=== PATIENT | female | born 1970 | race Caucasian/White ===

== ENCOUNTER 2018-01-07 20:25 | Emergency (ER) | payer OTHER ==
[2018-01-07] MEDS ORDERED: NS 1,000 ML IV ONE (21:07)
--- NOTE | 2018-01-07 21:14 | EDPHY ---
H & P Stated Complaint: CONTINUED PELVIC PRESSURE WITH SCIATIC PAIN Time Seen by Provider: 01/07/18 20:54 HPI/ROS: CHIEF COMPLAINT: Suprapubic discomfort times 7-10 days HISTORY OF PRESENT ILLNESS: 47-year-old female with medical history significant for Sjogren syndrome, Ehler Danlos, fibromyalgia, chronic pain, chronic opiate dependence, seen at [facility] Emergency Department 1 week ago for evaluation of suprapubic discomfort. While there she had evaluation including pelvic examination and notes continued discomfort. No nausea or vomiting. No back or flank pain. No abnormal vaginal discharge or bleeding. No headache. PRIMARY CARE PROVIDER:Dr. Rosemary Mccarty REVIEW OF SYSTEMS: A ten point review of systems was performed and is negative with the exception of the items mentioned in the HPI PAST MEDICAL & SURGICAL HISTORY: Sjogren syndrome, Ehler Danlos, fibromyalgia, chronic pain, chronic opiate dependence SOCIAL HISTORY: Nonsmoker FAMILY HISTORY: No pertinent family history PHYSICAL EXAM (Prior to examination, patient consented to physical exam, hands were washed and my usual and customary physical exam procedures followed) 1) GENERAL: Well-developed, well-nourished, alert and oriented. Appears nontoxic. 2) HEAD: Normocephalic, atraumatic 3) HEENT: Pupils equal, round, reactive to light bilaterally. Sclera anicteric. Nasopharynx, oropharynx, clear, no lesions. Moist Mucous membranes. 4) NECK: Full range of motion, no meningeal signs. 5) LUNGS: Clear auscultation bilaterally, no wheezes, no rhonchi, no retractions. 6) HEART: Regular rate and rhythm, no murmur, no heave, no gallop. 7) ABDOMEN: No guarding, mild tenderness to palpation suprapubic region, negative McBurney's, negative Avelar's, negative Rovsing's, negative peritoneal sign, 8) MUSCULOSKELETAL: Moving all extremities, no focal areas of tenderness, no obvious trauma. No peripheral edema or discoloration. 9) BACK: No CVA tenderness, no midline vertebral tenderness, no fluctuance, no step-off, no obvious trauma, no visual or palpable abnormality. 10) SKIN: No rash, no petechiae. 11) Psychiatric: Patient is oriented X 3, there is no agitation. DIFFERENTIAL DIAGNOSIS: My differential diagnosis includes, but is not limited to, acute appendicitis, acute cholecystitis, bowel obstruction, acute pancreatitis, ovarian torsion, ectopic , gastritis and urinary tract infection. The patient understands that this diagnosis is provisional and can never be 100% accurate. This is a partial list of diagnoses considered. These considerations are based on history, physical exam, past history and reassessment. - Personal History LMP (Females 10-55): Extended Cycle BCP/Inj Current Tetanus/Diphtheria Vaccine: Yes - Medical/Surgical History Hx Asthma: No Hx Chronic Respiratory Disease: No Hx Diabetes: No Hx Cardiac Disease: No Hx Renal Disease: No Hx Cirrhosis: No Hx Alcoholism: No Hx HIV/AIDS: No Hx Splenectomy or Spleen Trauma: No Other PMH: ULNAR NERVE RELEASE, SCALING ECTOMY, LAPRSCOPIC EXPLORITORY, PT REPORTS SHE HAS CHRONIC PAIN DUE TO FIBRA MAYALGIA, SJOGREN''S SYNDROME - Social History Smoking Status: Never smoked Constitutional: Initial Vital Signs Temperature (C) 37.2 C 01/07/18 20:27 Heart Rate 92 01/07/18 20:27 Respiratory Rate 16 01/07/18 20:27 Blood Pressure 108/71 01/07/18 20:27 O2 Sat (%) 97 01/07/18 20:27 O2 Delivery Mode Room Air Allergies/Adverse Reactions: No Allergies [NKDA] Allergy (Verified 01/11/12 10:59) HAYFEVER Allergy (Uncoded 01/11/12 10:59) STUFFY/RUNNY NOSE/ITCHY EYES Home Medications: Medication Instructions Recorded Achiphex Unk Dose 01/11/12 Celebrex Unk 01/11/12 Diazepam Unk Dose 01/11/12 Evoxac Unk Dose 01/11/12 Gabapentin 800mg Po Bid 01/11/12 Carmen 01/11/12 Lyrica Unk Dose 01/11/12 Nortrol Unk Dose 01/11/12 Nucynta Unk Dose 01/11/12 Zyrtec Unk Dose 01/11/12 Diclofenac Potassium [Zipsor] 07/24/13 Venlafaxine Xr [Effexor Xr 75MG 07/24/13 (RX)] Cephalexin [Keflex] 500 mg PO TID 7 Days cap 01/07/18 Dilaudid 4 mg (*) 4 mg TID 01/07/18 Phenazopyridine HCl [Pyridium] 200 mg PO PC #10 tab 01/07/18 Medical Decision Making - Diagnostics Imaging Results: Imaging Impressions Pelvic/Renal Ultrasound 01/07/18 21:07 Impression: 1. No uterine leiomyomata or free fluid in the pelvis. 2. Nonvisualization of the right ovary. 3. Normal left ovary without torsion or adnexal masses. Findings and recommendations discussed with Emergency Department physician, Sherwin Muir at 22:10 hour, 01/07/2018. Final report concurs with initial preliminary interpretation. Images reviewed myself ED Course/Re-evaluation: Reviewed the patient's old medical records from [facility] 1 week ago in the emergency department. At the time she had CT imaging or abdomen. Here in emergency department the patient has had ultrasonographic evaluation, urinalysis which is positive for bacteriuria and pyuria. We discussed possible cystitis. Urine will be cultured. She will be started on Keflex and Pyridium. At 10:40 p.m. I entered the room to re-evaluate the patient. She is sleeping , easily woken. I requested to re-examine her abdomen which she declined. Discussed the indications risks benefits of CT imaging of the abdomen to evaluate for acute surgical abdominal pathology such as acute appendicitis. She has had CT imaging as recently as 7 days ago currently states that her pain is controlled. She has been informed that acute appendicitis is not ruled out. This point will hold on repeat CT imaging. She has been given my usual and customary abdominal precautions instructions. She feels comfortable being discharged. Recommend she follow up with her primary care provider on Tuesday ( today is Tuesday night). All questions and concerns addressed by myself. I saw this patient independently based on established practice protocols. Care of patient under supervision of secondary supervising physician Dr Espinal with whom I discussed case. - Data Points Laboratory Results: Laboratory Results 01/07/18 21:20 01/07/18 21:20 01/07/18 01/07/18 01/07/18 21:20 21:20 21:20 WBC 4.53 10^3/uL 10^3/uL (3.80-9.50) RBC 4.99 10^6/uL 10^6/uL (4.18-5.33) Hgb 15.1 g/dL g/dL (12.6-16.3) Hct 44.6 % % (38.0-47.0) MCV 89.4 fL fL (81.5-99.8) MCH 30.3 pg pg (27.9-34.1) MCHC 33.9 g/dL g/dL (32.4-36.7) RDW 15.7 % H % (11.5-15.2) Plt Count 248 10^3/uL 10^3/uL (150-400) MPV 9.7 fL fL (8.7-11.7) Neut % (Auto) 40.3 % % (39.3-74.2) Lymph % (Auto) 45.3 % H % (15.0-45.0) Miller % (Auto) 10.6 % % (4.5-13.0) Eos % (Auto) 2.9 % % (0.6-7.6) Baso % (Auto) 0.7 % % (0.3-1.7) Nucleat RBC Rel Count 0.0 % % (0.0-0.2) Absolute Neuts (auto) 1.83 10^3/uL 10^3/uL (1.70-6.50) Absolute Lymphs (auto) 2.05 10^3/uL 10^3/uL (1.00-3.00) Absolute Monos (auto) 0.48 10^3/uL 10^3/uL (0.30-0.80) Absolute Eos (auto) 0.13 10^3/uL 10^3/uL (0.03-0.40) Absolute Basos (auto) 0.03 10^3/uL 10^3/uL (0.02-0.10) Absolute Nucleated RBC 0.00 10^3/uL 10^3/uL (0-0.01) Immature Gran % 0.2 % % (0.0-1.1) Immature Gran # 0.01 10^3/uL 10^3/uL (0.00-0.10) Sodium 139 mEq/L mEq/L (135-145) Potassium 4.1 mEq/L mEq/L (3.3-5.0) Chloride 104 mEq/L mEq/L (97-110) Carbon Dioxide 24 mEq/l mEq/l (22-31) Anion Gap 11 mEq/L mEq/L (8-16) BUN 18 mg/dL mg/dL (7-23) Creatinine 1.0 mg/dL mg/dL (0.6-1.0) Estimated GFR 59 Glucose 99 mg/dL mg/dL (70-100) Calcium 8.7 mg/dL mg/dL (8.5-10.4) Total Bilirubin 0.3 mg/dL mg/dL (0.1-1.4) Conjugated Bilirubin 0.1 mg/dL mg/dL (0.0-0.5) Unconjugated Bilirubin 0.2 mg/dL mg/dL (0.0-1.1) AST 31 IU/L IU/L (14-46) ALT 46 IU/L IU/L (9-52) Alkaline Phosphatase 81 IU/L IU/L (38-126) Total Protein 7.1 g/dL g/dL (6.3-8.2) Albumin 4.2 g/dL g/dL (3.5-5.0) Lipase 68 IU/L IU/L (23-300) Beta HCG, Qual NEGATIVE Urine Color Urine Appearance Urine pH Ur Specific [place] Urine Protein Urine Ketones Urine Blood Urine Nitrate Urine Bilirubin Urine Urobilinogen Ur Leukocyte Esterase Urine RBC Urine WBC Ur Epithelial Cells Urine Bacteria Hyaline Casts Urine Mucus Urine Glucose 01/07/18 21:10 WBC RBC Hgb Hct MCV MCH MCHC RDW Plt Count MPV Neut % (Auto) Lymph % (Auto) Miller % (Auto) Eos % (Auto) Baso % (Auto) Nucleat RBC Rel Count Absolute Neuts (auto) Absolute Lymphs (auto) Absolute Monos (auto) Absolute Eos (auto) Absolute Basos (auto) Absolute Nucleated RBC Immature Gran % Immature Gran # Sodium Potassium Chloride Carbon Dioxide Anion Gap BUN Creatinine Estimated GFR Glucose Calcium Total Bilirubin Conjugated Bilirubin Unconjugated Bilirubin AST ALT Alkaline Phosphatase Total Protein Albumin Lipase Beta HCG, Qual Urine Color YELLOW Urine Appearance HAZY Urine pH 5.0 (5.0-7.5) Ur Specific [place] 1.024 (1.002-1.030) Urine Protein 1+ H (NEGATIVE) Urine Ketones NEGATIVE (NEGATIVE) Urine Blood NEGATIVE (NEGATIVE) Urine Nitrate NEGATIVE (NEGATIVE) Urine Bilirubin NEGATIVE (NEGATIVE) Urine Urobilinogen 2.0 EU H EU (0.2-1.0) Ur Leukocyte Esterase NEGATIVE (NEGATIVE) Urine RBC 1-3 /hpf /hpf (0-3) Urine WBC 3-5 /hpf H /hpf (0-3) Ur Epithelial Cells 1+ /lpf /lpf (NONE-1+) Urine Bacteria 2+ /hpf H /hpf (NONE SEEN) Hyaline Casts 5-15 /lpf /lpf (0-1) Urine Mucus 2+ /lpf H /lpf (NONE-1+) Urine Glucose NEGATIVE (NEGATIVE) Medications Given: Discontinued Medications Cephalexin (Keflex 500 Mg Prepack#4) 1 btl TAKEHOME EDNOW ONE PRN Reason: Protocol Stop: 01/07/18 22:53 Last Admin: 01/07/18 23:02 Dose: 1 btl Sodium Chloride (Ns) 1,000 mls @ 0 mls/hr IV ONCE ONE PRN Reason: Wide Open Stop: 01/07/18 21:08 Last Admin: 01/07/18 21:23 Dose: 1,000 mls Departure - Departure Disposition: Home, Routine, Self-Care Clinical Impression: Urinary tract infection Qualifiers: Urinary tract infection type: acute cystitis Hematuria presence: without hematuria Qualified Code(s): N30.00 - Acute cystitis without hematuria Condition: Good Instructions: Cephalexin (By mouth), Phenazopyridine (By mouth), Urinary Tract Infection in Women (ED) Additional Instructions: Return to the ER immediately if you experience fevers/chills, flu like symptoms , inability to tolerate oral intake, nausea or vomiting, or any other symptoms that concern you. Referrals: Rosemary Mccarty MD [Primary Care Provider] - 01/09/18 Prescriptions: Cephalexin [Keflex] 500 mg PO TID 7 Days cap Phenazopyridine HCl [Pyridium] 200 mg PO PC #10 tab
[2018-01-07 22:02] LABS: PLATELET COUNT 248 10^3/uL (150-400)
[2018-01-07] MEDS ORDERED: CEPHALEXIN 500MG PREPACK#4 BTL TAKEHOME ONE (22:52)
[2018-01-07 23:06] VITALS: BP 98/55
== END 2018-01-07 23:05 | disposition home or self-care (01) ==
DX: N30.00 Acute cystitis without hematuria (principal)